=== PATIENT | male | born 1950 | race Caucasian/White ===

== ENCOUNTER → 2024-06-07 09:55 | Outpatient (REF) | payer MEDICARE, OTHER, SELFPAY ==
[2024-06-07 11:12] LABS: % Basophils 0.9 % (0-2); % Eosinophils 1.7 % (0-6); % Immature Granulocytes 0.1 % (0-0.5); % Monocytes 9.3 % (1.7-9.3); Absolute Basophils 0.1 10^3/uL (0-0.2); Absolute Eosinophils 0.1 10^3/uL (0-0.7); Absolute Lymphocytes 1.6 10^3/uL (1.2-3.4); Absolute Monocytes 0.7 10^3/uL (0.1-0.6); Absolute Neutrophils 5.1 10^3/uL (1.4-6.5); Hematocrit 47.2 % (39.0-52.0); Hemoglobin 16.9 g/dL (13.0-18.0); Mean Corp Hgb Conc. 35.8 g/dL (33.0-37.0); Mean Corpuscular Hgb 33.3 pg (27.0-31.0); Mean Corpuscular Volume 93.1 fL (80.0-94.0); Mean Platelet Volume 11.5 fL (7.4-10.4); Nucleated Red Blood Cells % 0 % (-); Platelet Count 185 10^3/uL (130-400); Red Blood Cell Count 5.07 10^6/uL (4.70-6.10); Red Cell Dist. Width 11.9 % (11.5-14.5); White Blood Cell Count 7.6 10^3/uL (4.8-10.8)
[2024-06-07 11:44] LABS: ALT (SGPT) 20 U/L (0-50); AST (SGOT) 29 U/L (17-59); Albumin 4.5 g/dl (3.5-5.0); Alkaline Phosphatase 61 U/L (38-126); Blood Urea Nitrogen 17 mg/dl (9-20); Calcium 9.4 mg/dl (8.4-10.2); Carbon Dioxide 28 mmol/L (22-30); Chloride 102 mmol/L (98-107); Glucose 105 mg/dl (70-99); HDL Cholesterol 48 mg/dl; LDL Cholesterol, Calculated 111 mg/dl; Potassium 4.4 mmol/L (3.5-5.1); Sodium 140 mmol/L (135-145); Total Bilirubin 1.4 mg/dl (0.2-1.3); Total Cholesterol 195 mg/dl (50-199); Total Protein 7.2 g/dl (6.3-8.2); Triglyceride 183 mg/dl (10-149); Very Low Density Lipoprotein 36 mg/dl (0-30); eGFR > 60.00
[2024-06-07 12:14] LABS: PSA, Total - Screen 0.97 ng/ml (0.0-4.0)
== END ==
LOC: REG 09:55
PROVIDERS: ATTENDING PHYSICIAN Family Medicine
DX: I10 Essential (primary) hypertension (principal); Z13.228 Encounter for screening for other metabolic disorders; Z13.0 Encounter for screening for diseases of the blood and blood-forming organs and certain disorders involving the immune mechanism; Z12.5 Encounter for screening for malignant neoplasm of prostate
CPT/HCPCS: 36415; 80053; 80061; 85025; G0103

== ENCOUNTER → 2024-07-19 11:17 | Outpatient (REF) | payer MEDICARE, OTHER, SELFPAY ==
[2024-07-21 08:07] LABS: Quantiferon Mitogen minus NIL 9.94 IU/mL; Quantiferon NIL 0.06 IU/mL; Quantiferon Plus TB1 minus NIL 0.02 IU/mL (<=0.34); Quantiferon TB Gold Plus Negative (Negative)
== END ==
LOC: REG 11:17
PROVIDERS: ATTENDING PHYSICIAN Dermatology; FAMILY PHYSICIAN Family Medicine
DX: L40.0 Psoriasis vulgaris (principal); Z79.899 Other long term (current) drug therapy
CPT/HCPCS: 36415; 86480

== ENCOUNTER → 2024-11-06 06:39 | Outpatient (REF) | payer MEDICARE, OTHER, SELFPAY | LOC: MRI 3T 06:39 | PROVIDERS: ATTENDING PHYSICIAN Orthopaedic Surgery Hand Surgery; FAMILY PHYSICIAN Family Medicine | DX: M75.122 Complete rotator cuff tear or rupture of left shoulder, not specified as traumatic (principal); M25.512 Pain in left shoulder | CPT/HCPCS: 73221 ==

== ENCOUNTER 2025-03-20 13:50 | Emergency (ER) | payer MEDICARE, OTHER, SELFPAY ==
[2025-03-20 14:03] VITALS: BP 136/86
--- NOTE | 2025-03-20 15:13 | ED.GENMED ---
History of Present Illness
General
Chief Complaint: DVT/Possible Blood Clot
Source: patient
Exam Limitations: none
Time Seen by Provider: 03/20/25 15:02
History of Present Illness
History of Present Illness:
74yoM with a history of hypertension and JES presenting for evaluation of left leg swelling. Symptoms initially began about 3 days ago with pain in his left lateral thigh. He was seen by an security trainer and diagnosed with IT band syndrome. He
has been icing the area with some improvement in his pain. He started to experience swelling in the calf today. His was unable to palpate a DP pulse. He was initially seen at urgent care and was sent to the ED for evaluation. He has
baseline neuropathy but denies any new numbness or weakness of the extremity. He denies any specific trauma although has been doing squats recently. No chest pain or shortness of breath. No recent travel or history of VTE.
Past History
Past History
ED Past Medical History: None
ED Past Surgical History: Orthopedic
Phy Exam
General Physical Exam
General Presentation: well appearing and no apparent distress
General Skin: warm and dry
General Habitus: normal
General Mental: alert
Cardiovascular Exam
Cardiovascular Exam: normal peripheral pulses (2+ PT pulses bilaterally)
Neurological Exam
Neurological Exam: alert
Fede Coma Scale
Eye Opening: Spontaneous
Verbal Response: Oriented
Motor Response: Obeys Commands
GCS Total Score: 15
Musculoskeletal Exam
Musculoskeletal Exam: other (+Pitting edema throughout L calf. No obvious knee effusion. ROM of knee intact.)
Skin Exam
Skin Exam: normal color and warm/dry
Psychiatric Exam
Psychiatric Exam: normal mood/affect
Course
Orders/Labs/Results
Orders:
Orders
03/20/25 15:12
Venous Doppler Lwr Ext Left [US Periph Venous LOWER Ext LT] Urgent
Comment:
Reason For Exam: L calf swelling
03/20/25 16:20
03/20/25 16:20
Vital Signs
Initial and Last Documented VS:
Initial Vital Signs
Temp Pulse Resp BP Pulse Ox
98.4 F 70 18 136/86 96
03/20/25 14:03 03/20/25 14:03 03/20/25 14:03 03/20/25 14:03 03/20/25 14:03
Last Documented Vital Signs
Temp Pulse Resp BP Pulse Ox
98.0 F 61 18 137/71 98
03/20/25 17:26 03/20/25 17:26 03/20/25 14:03 03/20/25 17:26 03/20/25 17:26
MDM/Problems Addressed
Differential Diagnosis Includes:
74yoM here with L calf swelling. Sent in by urgent care for possible DVT. states she was unable to palpate his pulse at home although PT pulse is 2+. Differential diagnosis includes: DVT, Martinez's cyst, knee effusion, dependent edema
Venous duplex obtained which is negative for DVT. Patient stable for discharge. Advised elevation/compression to help with swelling and f/u with orthopedics if symptoms persist.
*Pulse Oximetry
SaO2: 96
Oxygen Mode of Delivery: Room air
Patient hypoxic: no
*Critical Care Note
Total Time (30-74mins, 75-104mins- exclusive of procedures): Not Applicable
ED Attending Note
-
Portions of this chart may have been created with voice recognition software.� Occasional wrong word or��sound alike� substitutions may have occurred due to the inherent limitations of voice recognition software.
Discharge Plan
Departure
Patient Disposition: Home (Routine Discharge)
Date of Disposition: 03/20/25
Time of Disposition: 17:01
Patient with high blood pressure during this ER visit?: No
Discharge Problem:
Edema of left lower leg
Instructions: Swelling
Prescriptions:
No Action
pantoprazole 40 MG tablet,delayed release (DR/EC)
40 mg PO DAILY
multivitamin 1 EACH tablet
1 ea PO DAILY
Referrals:
Juan Carlos Castaneda MD [Family Provider, Family Practice]
Pete Chiu MD [Active, Orthopedics]
Activity Restrictions/Additional Instructions:
Elevate your leg and wear compression stockings to help with swelling.
Please follow-up with orthopedics if symptoms persist. Return to the ER with any new or worsening symptoms.
Interventions
Interventions:
*Risk Screen - Suicide Last Done: 03/20/25 14:03
*General Assessment Last Done: 03/20/25 17:32
*Neglect/Abuse Screening Last Done: 03/20/25 17:32
*ED- Fall Risk Assessment Last Done: 03/20/25 17:32
*ED COVID-19 Vaccine History Last Done: 03/20/25 17:32
*Nursing Disposition Last Done: 03/20/25 18:06
ED- Cardiac Assessment Last Done: 03/20/25 17:32
ED- Pulmonary Assessment Last Done: 03/20/25 17:32
ED-Peripheral Vascular Assessment Last Done: 03/20/25 17:50
ED-Skin Assessment Last Done: 03/20/25 17:32
Discharge Date and Time
Discharge Date/Time: 03/20/25 17:30
Print Language: AZERI
[2025-03-20 17:26] VITALS: BP 137/71
== END 2025-03-20 17:30 | disposition home or self-care (01) ==
LOC: EMR 13:50
PROVIDERS: EMERGENCY PHYSICIAN Emergency Medicine; FAMILY PHYSICIAN Family Medicine
DX: R60.0 Localized edema (principal); I10 Essential (primary) hypertension; G47.33 Obstructive sleep apnea (adult) (pediatric); M76.30 Iliotibial band syndrome, unspecified leg; G62.9 Polyneuropathy, unspecified
CPT/HCPCS: 99284; 93971

== ENCOUNTER → 2025-06-07 10:48 | Outpatient (REF) | payer MEDICARE, OTHER, SELFPAY ==
[2025-06-07 11:51] LABS: Hematocrit 46.0 % (39.0-52.0); Hemoglobin 16.4 g/dL (13.0-18.0); Mean Corp Hgb Conc. 35.7 g/dL (33.0-37.0); Mean Corpuscular Volume 94.8 fL (80.0-94.0); Nucleated Red Blood Cells % 0 % (-); Platelet Count 220 10^3/uL (130-400); Red Cell Dist. Width 12.0 % (11.5-14.5)
[2025-06-07 12:00] LABS: ALT (SGPT) 22 U/L (0-50); AST (SGOT) 30 U/L (17-59); Albumin 4.6 g/dl (3.5-5.0); Alkaline Phosphatase 55 U/L (38-126); Blood Urea Nitrogen 18 mg/dl (9-20); Calcium 9.6 mg/dl (8.4-10.2); Carbon Dioxide 26 mmol/L (22-30); Chloride 104 mmol/L (98-107); Glucose 99 mg/dl (70-99); HDL Cholesterol 56 mg/dl; LDL Cholesterol, Calculated 112 mg/dl; Potassium 4.6 mmol/L (3.5-5.1); Sodium 137 mmol/L (135-145); Total Protein 7.8 g/dl (6.3-8.2); Very Low Density Lipoprotein 29 mg/dl (0-30); eGFR > 60.00
[2025-06-07 12:47] LABS: PSA, Total - Screen 0.97 ng/ml (0.0-4.0)
== END ==
LOC: REG 10:48
PROVIDERS: ATTENDING PHYSICIAN Family Medicine
DX: K21.9 Gastro-esophageal reflux disease without esophagitis (principal); I10 Essential (primary) hypertension; G47.33 Obstructive sleep apnea (adult) (pediatric); Z98.890 Other specified postprocedural states; G89.29 Other chronic pain; Z12.5 Encounter for screening for malignant neoplasm of prostate
CPT/HCPCS: 36415; 80053; 80061; 85025; G0103